=== PATIENT | female | born 1990 | race Caucasian/White ===

== ENCOUNTER 2019-07-15 20:27 | Emergency (ER) | payer MEDICAID ==
[~2019-07-15] VITALS: Ht 157.5 cm; Wt 76.7 kg
[2019-07-15 21:09] VITALS: BP 123/74
== END 2019-07-15 21:10 | disposition home or self-care (01) ==
LOC: ED 21:04
DX: L02.411 Cutaneous abscess of right axilla (principal)
CPT/HCPCS: 99283

== ENCOUNTER 2020-11-13 11:57 | Emergency (ER) | payer MEDICAID ==
[~2020-11-13] VITALS: Ht 157.5 cm; Wt 79.2 kg
--- NOTE | 2020-11-13 12:31 | NUR ---
EKG IN TRIAGE
--- NOTE | 2020-11-13 14:06 | NUR ---
NIL X 1 FOR REPEAT VS
--- NOTE | 2020-11-13 14:57 | NUR ---
PT IN IMAGING
[2020-11-13 15:07] LABS: BASOPHILS % (AUTO) 1 % (0-1); EOSINOPHILS % (AUTO) 1 % (1-7); LYMPHOCYTES % (AUTO) 18 % (22-44); MEAN CORPUSCULAR HEMOGLOBIN 32.5 pg (27.0-34.8); MEAN CORPUSCULAR HGB CONC 34.6 g/dL (32.4-35.8); MEAN PLATELET VOLUME 9.4 fL (7.4-10.4); MONOCYTES % (AUTO) 5 % (2-9); NEUTROPHILS % (AUTO) 76 % (42-75); PLATELET COUNT 194 x10^3/uL (130-400); RED BLOOD COUNT 3.96 x10^6/uL (3.82-5.3); RED CELL DISTRIBUTION WIDTH 13.4 % (9.6-15.2)
[2020-11-13 15:08] LABS: MD NO
--- NOTE | 2020-11-13 15:10 | NUR ---
PT STATES SHE IS 19 WEEKS . DENIES CP AT THIS TIME. PT ON LOIN TRIMMER. L&D CALLED FOR HEART TONES.
[2020-11-13 15:18] LABS: ALBUMIN 2.9 g/dL (3.4-5.0); ANION GAP 6 mmol/L (5-15); CALCIUM 8.2 mg/dL (8.5-10.1); CHLORIDE 112 mmol/L (98-107)
[2020-11-13 15:28] LABS: CREATININE 0.58 mg/dL (0.55-1.02); TROPONIN I < 0.015 ng/mL (0.000-0.045)
--- NOTE | 2020-11-13 16:25 | NUR ---
PT TO RECIEVE US TO RULE OUT DVT. PT RESTING, DENIES CP.
--- NOTE | 2020-11-13 16:57 | NUR ---
US AT BEDSIDE.
--- NOTE | 2020-11-13 17:30 | NUR ---
US COMPLETE. READY FOR DC. PT DENIES CP OR SOB, PALPITATIONS
[2020-11-13 18:02] VITALS: BP 110/72
--- NOTE | 2020-11-13 18:03 | NUR ---
Patient given discharge instructions and they have confirmed that they understand the instructions. Patient ambulatory with steady gait.
== END 2020-11-13 18:06 | disposition home or self-care (01) ==
LOC: ED 15:51
DX: O26.892 Other specified pregnancy related conditions, second trimester (principal); R00.0 Tachycardia, unspecified; R07.89 Other chest pain; R94.31 Abnormal electrocardiogram [ECG] [EKG]; R06.00 Dyspnea, unspecified; Z3A.20 20 weeks gestation of pregnancy
CPT/HCPCS: 36415; 71045; 80048; 82040; 84443; 84484; 85025; 85379; 93005; 93970; 99285

== ENCOUNTER 2021-01-18 13:17 | Observation (INO) | payer MEDICAID ==
[~2021-01-18] VITALS: Ht 157.5 cm; Wt 82.7 kg
[2021-01-18 14:00] LABS: MICROSCOPIC INDICATED
[2021-01-18 14:12] LABS: AMPHETAMINE SCREEN, URINE Negative (Negative); BARBITURATE SCREEN, URINE Negative (Negative); BENZODIAZEPINE SCREEN, URINE Negative (Negative); CANNABINOID SCREEN, URINE Negative (Negative); COCAINE SCREEN, URINE Negative (Negative); METHADONE SCREEN, URINE Negative (Negative); OPIATE SCREEN, URINE Negative (Negative)
[2021-01-18] MEDS ORDERED: morphine SULFATE 10 MG/ML, 1ML ONE (15:17)
[2021-01-18] MEDS ORDERED: PROMETHAZINE 25 MG/ML, 1ML ONE (15:22)
[2021-01-18] MEDS ORDERED: MORPHINE SULFATE 4 MG/ML, 1ML IVPush PRN ×2 (15:30→16:00)
[2021-01-18] MEDS ORDERED: PROMETHAZINE 25 MG/ML, 1ML IM PRN (15:30)
[2021-01-18] MEDS ORDERED: LACTATED RINGERS 1,000 ML IV SCH ×3 (16:00→19:00)
[2021-01-18] MEDS ORDERED: morphine SULFATE 10 MG/ML, 1ML IVPush PRN (16:02)
[2021-01-18] MEDS ORDERED: OXYcodone/APAP 10/325MG TABLET PO PRN (20:00)
[2021-01-18] MEDS ORDERED: ONDANSETRON 2MG/ML, 2ML IVPush PRN (20:00)
[2021-01-18] MEDS ORDERED: ONDA4TAB7 PO (21:30)
[2021-01-18] MEDS ORDERED: OXYC1TAB14 PO (21:30)
[2021-01-19] MEDS ORDERED: OXYcodone/APAP 10/325MG TABLET ONE (01:10)
== END 2021-01-18 22:07 | disposition home or self-care (01) ==
LOC: LDOP 13:17 → LDIP 14:00 → UNDOADMOB 14:00 → LDIP 15:00
PROVIDERS: ADMIT Obstetrics & Gynecology; ATTEND Obstetrics & Gynecology
DX: O26.893 Other specified pregnancy related conditions, third trimester (principal); R10.9 Unspecified abdominal pain; O99.353 Diseases of the nervous system complicating pregnancy, third trimester; G43.909 Migraine, unspecified, not intractable, without status migrainosus; Z3A.29 29 weeks gestation of pregnancy; Z79.899 Other long term (current) drug therapy
CPT/HCPCS: 76770; 80307; 81001; 87086; 96361; 96372; 96374; 96375; 99211; G0378; J2270; J2405; J2550; J7120; 96360; G0463

== ENCOUNTER 2021-02-14 16:25 | Inpatient (IN) | payer MEDICAID ==
[~2021-02-14] VITALS: Ht 157.5 cm; Wt 84.1 kg
[~2021-02-14 16:25] MED LIST: ONDA4TAB7 PO; OXYC1TAB14 PO
[2021-02-14] MEDS ORDERED: LACTATED RINGERS 1,000 ML IVBOLUS ONE (17:30)
[2021-02-14] MEDS ORDERED: PLEASE ENTER HEIGHT AND WEIGHT MC SCH (17:30)
[2021-02-14] MEDS ORDERED: TERBUTALINE 1 MG/ML, 1ML ONE (17:59)
[2021-02-14] MEDS ORDERED: TERBUTALINE 1 MG/ML, 1ML IV ONE (18:00)
[2021-02-14 18:31] LABS: MICROSCOPIC INDICATED
[2021-02-14] MEDS ORDERED: FENTANYL PF 100 MCG/2ML ONE (19:15)
[2021-02-14] MEDS ORDERED: FENTANYL PF 100 MCG/2ML IVPush PRN ×2 (19:30→21:30)
[2021-02-14] MEDS ORDERED: LACTATED RINGERS 1,000 ML IV PRN (19:30)
[2021-02-14] MEDS: BETAMETHASONE 6 MG/ML, 5ML IM SCH (19:51)
[2021-02-14] MEDS ORDERED: MAGNESIUM SULFATE PMX 4GM/100M 100 ML IVPB ONE (21:00)
[2021-02-14] MEDS ORDERED: AMPICILLIN 2 GM in SODIUM CHLORIDE 0.9% 100 ML IVPB ONE (21:03)
[2021-02-14] MEDS: MAGNESIUM SULF. PMX 20GM/500ML 500 ML IV SCH (21:18)
[2021-02-14] MEDS ORDERED: TERBUTALINE 1 MG/ML, 1ML IVPush PRN (21:30)
[2021-02-14] MEDS ORDERED: CALCIUM CARBONATE 500 MG TAB.CHEW PO PRN (21:30)
[2021-02-14] MEDS ORDERED: TERBUTALINE 1 MG/ML, 1ML SQ PRN (21:30)
[2021-02-14] MEDS ORDERED: D5%-LACTATED RINGERS 1,000 ML IV SCH (21:30)
[2021-02-14] MEDS ORDERED: FENTANYL PF 100 MCG/2ML IV PRN (21:30)
[2021-02-14] MEDS ORDERED: ONDANSETRON 2MG/ML, 2ML IVPush PRN (21:30)
[2021-02-14] MEDS ORDERED: OXYTOCIN 30U/ 0.9% NaCL 500ML 500 ML IV ONE (21:30)
[2021-02-14 21:31] LABS: BASOPHILS % (AUTO) 1 % (0-1); EOSINOPHILS % (AUTO) 0 % (1-7); LYMPHOCYTES % (AUTO) 12 % (22-44); MEAN CORPUSCULAR HEMOGLOBIN 32.6 pg (27.0-34.8); MEAN CORPUSCULAR HGB CONC 34.2 g/dL (32.4-35.8); MEAN PLATELET VOLUME 9.9 fL (7.4-10.4); MONOCYTES % (AUTO) 5 % (2-9); NEUTROPHILS % (AUTO) 82 % (42-75); PLATELET COUNT 170 x10^3/uL (130-400); RED BLOOD COUNT 3.93 x10^6/uL (3.82-5.3); RED CELL DISTRIBUTION WIDTH 12.9 % (9.6-15.2)
[2021-02-15] MEDS: AMPICILLIN 1 GM in SODIUM CHLORIDE 0.9% 100 ML IVPB SCH ×5 (04:08→21:53)
[2021-02-15] MEDS: MAGNESIUM SULF. PMX 20GM/500ML 500 ML IV SCH ×2 (04:24→15:42)
[2021-02-15 05:45] VITALS: BP 118/64
[2021-02-15] MEDS: ACETAMINOPHEN 325 MG TABLET PO PRN ×2 (08:22→22:47)
[2021-02-15] MEDS ORDERED: ACETAMINOPHEN 325 MG TABLET ONE (08:37)
[2021-02-15] MEDS ORDERED: LACTATED RINGERS 1,000 ML IV SCH ×2 (13:30→13:37)
[2021-02-15] MEDS ORDERED: DOCUSATE 100 MG CAPSULE ONE (17:10)
[2021-02-15] MEDS ORDERED: PRENATAL VIT/IRON/FA 1 EACH TABLET ONE (17:10)
[2021-02-15] MEDS: PRENATAL VIT/IRON/FA 1 EACH TABLET PO SCH (17:20)
[2021-02-15] MEDS: DOCUSATE 100 MG CAPSULE PO SCH (17:20)
[2021-02-15] MEDS: BETAMETHASONE 6 MG/ML, 5ML IM SCH (19:55)
[2021-02-16] MEDS ORDERED: HYDROXYZINE PAMOATE 50MG CAP PO ONE (00:30)
[2021-02-16] MEDS: AMPICILLIN 1 GM in SODIUM CHLORIDE 0.9% 100 ML IVPB SCH ×5 (01:59→23:00)
[2021-02-16] MEDS: MAGNESIUM SULF. PMX 20GM/500ML 500 ML IV SCH ×2 (02:04→13:00)
[2021-02-16] MEDS: PRENATAL VIT/IRON/FA 1 EACH TABLET PO SCH (17:40)
[2021-02-16] MEDS: DOCUSATE 100 MG CAPSULE PO SCH (17:40)
[2021-02-17] MEDS: AMPICILLIN 1 GM in SODIUM CHLORIDE 0.9% 100 ML IVPB SCH (05:30)
[2021-02-17] MEDS: PRENATAL VIT/IRON/FA 1 EACH TABLET PO SCH (11:02)
== END 2021-02-17 12:03 | disposition home or self-care (01) | DRG 833 ==
LOC: LDOP 16:25 → LDIP 19:35 → OBSVTOIN 21:00 → LDIP 21:07
PROVIDERS: ADMIT Obstetrics & Gynecology; ATTEND Obstetrics & Gynecology
DX: O62.8 Other abnormalities of forces of labor (principal); O99.343 Other mental disorders complicating pregnancy, third trimester; O99.353 Diseases of the nervous system complicating pregnancy, third trimester; Z20.822 Contact with and (suspected) exposure to COVID-19; G43.909 Migraine, unspecified, not intractable, without status migrainosus; F32.9 Major depressive disorder, single episode, unspecified; Z3A.33 33 weeks gestation of pregnancy
CPT/HCPCS: 36415; 76815; 81001; 83735; 84112; 85025; 86592; 86850; 86900; 87081; 87086; 87635; 96372; G0378; J0290; J0702; J3010; J3105; J3475; J7120

== ENCOUNTER 2021-02-24 23:36 | Outpatient (CLI) | payer MEDICAID ==
[~2021-02-24] VITALS: Ht 157.5 cm; Wt 81.0 kg
[2021-02-25 00:17] LABS: MICROSCOPIC NOT IND
[2021-02-25 00:44] VITALS: BP 115/81
== END 2021-02-25 01:15 | disposition home or self-care (01) ==
LOC: LDOP 23:36
PROVIDERS: ATTEND Obstetrics & Gynecology
DX: O26.893 Other specified pregnancy related conditions, third trimester (principal); R10.9 Unspecified abdominal pain; Z3A.34 34 weeks gestation of pregnancy
CPT/HCPCS: 59025; 81003; 87086

== ENCOUNTER 2021-03-20 20:37 | Inpatient (IN) | payer MEDICAID ==
[~2021-03-20] VITALS: Ht 157.5 cm; Wt 82.0 kg
[2021-03-20] MEDS ORDERED: METOCLOPRAMIDE 5 MG/ML, 2ML IVPush PRN (22:30)
[2021-03-20] MEDS ORDERED: OXYTOCIN 30U/ 0.9% NaCL 500ML 500 ML IV ONE (22:30)
[2021-03-20] MEDS: D5%-LACTATED RINGERS 1,000 ML IV SCH (22:30)
[2021-03-20] MEDS ORDERED: SODIUM CHLORIDE FLUSH 10ML SYR IVF PRN (22:30)
[2021-03-20] MEDS ORDERED: TERBUTALINE 1 MG/ML, 1ML IVPush PRN (22:30)
[2021-03-20] MEDS ORDERED: ONDANSETRON 2MG/ML, 2ML IVPush PRN (22:30)
[2021-03-20] MEDS ORDERED: FENTANYL PF 100 MCG/2ML IVPush PRN (22:30)
[2021-03-20] MEDS: LACTATED RINGERS 1,000 ML IV SCH (22:30)
[2021-03-20] MEDS ORDERED: SODIUM CITRATE/CITRIC ACID 30 ML UDC PO PRN (22:30)
[2021-03-20] MEDS ORDERED: FENTANYL PF 100 MCG/2ML IV PRN (22:30)
[2021-03-20] MEDS ORDERED: ALUMINUM/MAG/SIMETHICONE 30 ML UDC PO PRN (22:30)
[2021-03-20] MEDS ORDERED: CALCIUM CARBONATE 500 MG TAB.CHEW PO PRN (22:30)
[2021-03-20] MEDS ORDERED: TERBUTALINE 1 MG/ML, 1ML SQ PRN (22:30)
[2021-03-20] MEDS ORDERED: NEWBORN KIT ONE (22:37)
[2021-03-20 22:50] LABS: BASOPHILS % (AUTO) 0 % (0-1); EOSINOPHILS % (AUTO) 1 % (1-7); LYMPHOCYTES % (AUTO) 25 % (22-44); MEAN CORPUSCULAR HEMOGLOBIN 32.7 pg (27.0-34.8); MEAN CORPUSCULAR HGB CONC 35.4 g/dL (32.4-35.8); MEAN PLATELET VOLUME 9.8 fL (7.4-10.4); MONOCYTES % (AUTO) 8 % (2-9); NEUTROPHILS % (AUTO) 66 % (42-75); PLATELET COUNT 155 x10^3/uL (130-400); RED BLOOD COUNT 3.88 x10^6/uL (3.82-5.3); RED CELL DISTRIBUTION WIDTH 13.2 % (9.6-15.2)
[2021-03-20] MEDS: PLEASE ENTER HEIGHT AND WEIGHT MC SCH (23:00)
[2021-03-20] MEDS ORDERED: FENTANYL/BUPIV./NS/PF 250 ML EPIDCONT ONE (23:02)
[2021-03-20] MEDS ORDERED: BUPIVACAINE 0.25% ONE (23:10)
[2021-03-20] MEDS ORDERED: LIDOCAINE 1%, 20ML ONE (23:44)
[2021-03-20] MEDS ORDERED: MISOPROSTOL 200 MCG TABLET ONE (23:45)
[2021-03-21] MEDS ORDERED: LACTATED RINGERS 1,000 ML IVBOLUS PRN
[2021-03-21] MEDS ORDERED: EPHEDRINE 50 MG/ML, 1ML IVPush PRN
[2021-03-21] MEDS ORDERED: FENTANYL/BUPIV./NS/PF 250 ML EPIDCONT SCH
[2021-03-21] MEDS ORDERED: MISOPROSTOL 200 MCG TABLET PR PRN (06:30)
[2021-03-21] MEDS ORDERED: SIMETHICONE 80 MG CHEW TAB PO PRN (06:30)
[2021-03-21] MEDS ORDERED: ACETAMINOPHEN 325 MG TABLET PO PRN ×2 (06:30)
[2021-03-21] MEDS: LACTATED RINGERS 1,000 ML IV SCH ×6 (06:30→22:30)
[2021-03-21] MEDS ORDERED: OXYcodone/APAP 5/325MG TABLET PO PRN (06:30)
[2021-03-21] MEDS ORDERED: ONDANSETRON 2MG/ML, 2ML IV PRN (06:30)
[2021-03-21] MEDS: OXYTOCIN 30U/ 0.9% NaCL 500ML 500 ML IV SCH ×2 (06:30→16:30)
[2021-03-21] MEDS ORDERED: RHOGAM FROM BLOOD BANK 1 NOTE EA IM/IV ONE (06:30)
[2021-03-21] MEDS: D5%-LACTATED RINGERS 1,000 ML IV SCH ×3 (06:30→22:30)
[2021-03-21] MEDS ORDERED: MAGNESIUM HYDROXIDE 8%, 30ML UDC PO PRN (06:30)
[2021-03-21] MEDS ORDERED: DIPH,PERTUSS(ACELL),TET VAC/PF NC IM-VACC PRN (06:30)
[2021-03-21] MEDS: PLEASE ENTER HEIGHT AND WEIGHT MC SCH ×3 (07:00→23:00)
[2021-03-21 08:10] VITALS: BP 114/66
[2021-03-21] MEDS: PRENATAL VIT/IRON/FA 1 EACH TABLET PO SCH (09:37)
[2021-03-21] MEDS: IBUPROFEN 600 MG TABLET PO PRN ×3 (09:37→20:48)
[2021-03-21] MEDS: DOCUSATE 100 MG CAPSULE PO PRN (09:37)
[2021-03-21 12:30] VITALS: BP 103/68
[2021-03-21 14:36] LABS: BASOPHILS % (AUTO) 0 % (0-1); EOSINOPHILS % (AUTO) 0 % (1-7); LYMPHOCYTES % (AUTO) 13 % (22-44); MEAN CORPUSCULAR HEMOGLOBIN 32.7 pg (27.0-34.8); MEAN CORPUSCULAR HGB CONC 34.5 g/dL (32.4-35.8); MONOCYTES % (AUTO) 5 % (2-9); NEUTROPHILS % (AUTO) 82 % (42-75); PLATELET COUNT 142 x10^3/uL (130-400); RED BLOOD COUNT 3.62 x10^6/uL (3.82-5.3); RED CELL DISTRIBUTION WIDTH 13.3 % (9.6-15.2)
[2021-03-21 17:00] VITALS: BP 101/67
[2021-03-21] MEDS: OXYcodone/APAP 5/325MG TABLET PO PRN ×2 (17:27→23:40)
[2021-03-21 20:50] VITALS: BP 111/71
[2021-03-22 00:05] VITALS: BP 108/73
[2021-03-22] MEDS: LACTATED RINGERS 1,000 ML IV SCH ×3 (00:58→06:02)
[2021-03-22] MEDS: OXYTOCIN 30U/ 0.9% NaCL 500ML 500 ML IV SCH (00:58)
[2021-03-22] MEDS: D5%-LACTATED RINGERS 1,000 ML IV SCH (00:58)
[2021-03-22] MEDS: OXYcodone/APAP 5/325MG TABLET PO PRN ×2 (04:06→13:09)
[2021-03-22] MEDS: PLEASE ENTER HEIGHT AND WEIGHT MC SCH (04:13)
[2021-03-22 04:14] VITALS: BP 100/72
[2021-03-22 08:15] VITALS: BP 114/76
[2021-03-22] MEDS: PRENATAL VIT/IRON/FA 1 EACH TABLET PO SCH (09:17)
[2021-03-22] MEDS: IBUPROFEN 600 MG TABLET PO PRN (09:17)
[2021-03-22] MEDS: DOCUSATE 100 MG CAPSULE PO PRN (09:17)
[2021-03-22] MEDS ORDERED: IBUP-1222 PO (10:27)
== END 2021-03-22 14:00 | disposition home or self-care (01) | DRG 807 ==
LOC: LDOP 20:37 → LDIP 22:56 → 2NW 03-21 08:00
PROVIDERS: ADMIT Obstetrics & Gynecology; ATTEND Obstetrics & Gynecology
PROC: 10E0XZZ Delivery of Products of Conception, External Approach (ICD-10-PCS; principal; 2021-03-21)
PROC: 0KQM0ZZ Repair Perineum Muscle, Open Approach (ICD-10-PCS; 2021-03-21)
PROC: 10907ZC Drainage of Amniotic Fluid, Therapeutic from Products of Conception, Via Natural or Artificial Opening (ICD-10-PCS; 2021-03-21)
PROC: 10H07YZ Insertion of Other Device into Products of Conception, Via Natural or Artificial Opening (ICD-10-PCS; 2021-03-21)
PROC: 3E0R3BZ Introduction of Anesthetic Agent into Spinal Canal, Percutaneous Approach (ICD-10-PCS; 2021-03-21)
PROC: 00HU33Z Insertion of Infusion Device into Spinal Canal, Percutaneous Approach (ICD-10-PCS; 2021-03-21)
DX: O60.14X0 Preterm labor third trimester with preterm delivery third trimester, not applicable or unspecified (principal); Z37.0 Single live birth; Z3A.32 32 weeks gestation of pregnancy; O70.1 Second degree perineal laceration during delivery; Z88.8 Allergy status to other drugs, medicaments and biological substances; Z20.822 Contact with and (suspected) exposure to COVID-19; Z23 Encounter for immunization
CPT/HCPCS: 36415; 85025; 86592; 86850; 86870; 86900; 86922; 86923; 87635; G0378; J3010